=== PATIENT | female | born 1955 | race Caucasian/White ===

== ENCOUNTER 2019-09-08 05:50 | Day surgery (SDC) | payer OTHER, SELFPAY ==
[2019-09-07 07:30] VITALS: BMI 29.9
[2019-09-08 06:16] VITALS: BP 119/77; PULSE 57; RESP 20; TEMP 36.4; O2SAT 98
[2019-09-08] MEDS: sodium chloride 0.9% 1,000 ML 30 ML (06:21)
--- NOTE | 2019-09-08 06:46 | PM.HPUD ---
H&P update H&P Update: DATE OF SURGERY/PROCEDURE: 09/08/19 DATE H&P PERFORMED: 09/08/19 PLANNED PROCEDURE: Operation Date: 09/08/19 07:00 Proposed Procedures p EGD/COLON(Not Applicable) - Kamlesh Mcdonnell MD s Colonoscopy(Not Applicable) - Kamlesh Mcdonnell MD Full H&P Perinent History: Social History: Social History Smoking and tobacco status: never smoked Alcohol intake: current Alcohol intake frequency: other
--- NOTE | 2019-09-08 06:51 | ANES.PREANES ---
Pre-Anesthetic Assessment Pre-Anesthetic Assessment: Height/Weight: Height 1.65 m Weight 81.647 kg Temp Pulse Resp BP Pulse Ox 97.6 F 57 L 20 H 119/77 98 09/08/19 06:16 09/08/19 06:16 09/08/19 06:16 09/08/19 06:16 09/08/19 06:16 Proposed Procedure: Operation Date: 09/08/19 07:00 Proposed Procedures p EGD/COLON(Not Applicable) - Kamlesh Mcdonnell MD s Colonoscopy(Not Applicable) - Kamlesh Mcdonnell MD Last intake: Intake Last Liquid Date 09/07/19 Last Liquid Time 22:30 Last Solid Date 09/05/19 Last Intake: 00:00 Social: Social History: No alcohol and No tobacco Exam: Pre-Anes Outpt Exam: alert, oriented x 3, clear to auscultation bilaterally and regular rate & rhythm Airway: Submandibular: WNL Cervical ROM: WNL MP: 2 Dentition: Full History/ROS: No significant history except as noted and No significant complaints Pulmonary: Pulmonary: COOMBS and None reported CV/HEM: CV/HEM: Palp : : None reported Hepatic: Hepatic: None reported GI: GI: GERD Comments: IBS Metabolic: Metabolic: Thyroid and None reported Musc/skel: Musc/skel: None reported Neuropsych: Neuropsych: None reported Anesthetic Plan: ASA status: II Anesthesia: MAC Risk of > 500 ml blood loss (7ml/kg in children): No PFSH Anesthesia PFSH: Social History Smoking and tobacco status: never smoked Alcohol intake: current Alcohol intake frequency: other Data Anesthesia Cardiac Studies: No Data to Display
[2019-09-08 07:45] VITALS: BP 117/70; PULSE 60; RESP 16; TEMP 36.2; O2SAT 100
[2019-09-08 08:01] VITALS: BP 126/83; PULSE 59; RESP 18; O2SAT 98
[2019-09-09 06:48] LABS: H. Pylori / CLO Test Negative
== END 2019-09-08 08:22 | disposition home or self-care (01) ==
PROVIDERS: Family Provider Family Medicine; PCP Family Medicine; Visit Provider Surgery
PROC: 0DJ08ZZ Inspection of Upper Intestinal Tract, Via Natural or Artificial Opening Endoscopic (ICD-10-PCS; CPT 43235; principal; 2019-09-08 07:00)
PROC: 0DJD8ZZ Inspection of Lower Intestinal Tract, Via Natural or Artificial Opening Endoscopic (ICD-10-PCS; CPT 45378; 2019-09-08 07:00)
DX: Z83.71 Family history of colonic polyps (principal); K64.8 Other hemorrhoids; K21.9 Gastro-esophageal reflux disease without esophagitis; K29.70 Gastritis, unspecified, without bleeding; Z82.49 Family history of ischemic heart disease and other diseases of the circulatory system; Z87.19 Personal history of other diseases of the digestive system
CPT/HCPCS: 12345; 43235; 45378; 87077; 96365; J2001; J7030

== ENCOUNTER 2020-09-07 07:11 | Outpatient (CLI) | payer OTHER, SELFPAY ==
--- NOTE | 2020-09-07 07:18 | MM_ITS ---
WS: [id number] BILATERAL SCREENING DIGITAL MAMMOGRAM WITH CAD HISTORY: SCREENING COMPARISON: 07/13/2019 and 05/21/2018 Bilateral CC and MLO views submitted. Computer aided detection analyzed. Breast composition: There are scattered areas of fibroglandular density. No suspicious masses, microc alcifications or architectural distortion. Benign calcifications upper outer quadrant LEFT breast. MM/[id number] IMPRESSION: BI-RADS: 2-Benign FOLLOW UP: 1 Year Follow-up
== END 2020-09-07 07:12 | disposition home or self-care (01) ==
LOC: RADSHAW 07:16
PROVIDERS: Family Provider Family Medicine; PCP Family Medicine; Visit Provider Family Medicine
DX: Z12.31 Encounter for screening mammogram for malignant neoplasm of breast (principal)
CPT/HCPCS: 77067

== ENCOUNTER 2021-12-05 08:10 | Outpatient (CLI) | payer OTHER, SELFPAY ==
--- NOTE | 2021-12-05 08:17 | MM_ITS ---
WS: [id number] BILATERAL SCREENING 3D TOMOSYNTHESIS DIGITAL MAMMOGRAM WITH CAD HISTORY: SCREENING COMPARISON: 09/07/2020, 07/13/2019 Bilateral CC and MLO views submitted. Computer aided detection analyzed. Breast composition: There are scattered areas of fibroglandular density. No suspicious masses, microc alcifications or architectural distortion. Benign calcifications anterior LEFT breast. MM/[place] [id number] IMPRESSION: BI-RADS: 2-Benign FOLLOW UP: 1 Year Follow-up
== END 2021-12-05 08:11 | disposition home or self-care (01) ==
PROVIDERS: PCP Family Medicine; Visit Provider Family Medicine
DX: Z12.31 Encounter for screening mammogram for malignant neoplasm of breast (principal)
CPT/HCPCS: 77063; 77067

== ENCOUNTER → 2022-05-06 14:03 | Outpatient (BNVA) | payer OTHER, SELFPAY | PROVIDERS: PCP Family Medicine; Visit Provider Family Medicine | DX: Z00.00 Encounter for general adult medical examination without abnormal findings (principal); E07.9 Disorder of thyroid, unspecified; K22.70 Barrett's esophagus without dysplasia | CPT/HCPCS: 80053; 80061; 84443 ==

== ENCOUNTER → 2022-05-15 09:46 | Outpatient (BNVA) | payer OTHER, SELFPAY | PROVIDERS: PCP Family Medicine; Visit Provider Family Medicine | DX: Z00.00 Encounter for general adult medical examination without abnormal findings (principal); M25.50 Pain in unspecified joint; R53.83 Other fatigue; K22.70 Barrett's esophagus without dysplasia; E07.9 Disorder of thyroid, unspecified | CPT/HCPCS: 86618; 86666; 86757 ==

== ENCOUNTER 2022-12-11 10:49 | Outpatient (CLI) | payer MEDICARE, SELFPAY ==
--- NOTE | 2022-12-11 11:01 | MM_ITS ---
WS: [id number] BILATERAL SCREENING DIGITAL TOMOSYNTHESIS MAMMOGRAM WITH CAD HISTORY: SCREENING COMPARISON: 12/05/2021, 09/07/2020 Bilateral CC and MLO views with tomosynthesis and synthetic mammography submitted. Computer aided det ection analyzed. Breast composition: There are scattered areas of fibroglandular density. No suspicious masses, microc alcifications or architectural distortion. Benign calcifications LEFT breast. MM/[id number] IMPRESSION: BI-RADS: 2-Benign FOLLOW UP: 1 Year Follow-up
== END 2022-12-11 10:50 | disposition home or self-care (01) ==
LOC: RAD 10:58
PROVIDERS: PCP Family Medicine; Visit Provider Family Medicine
DX: Z12.31 Encounter for screening mammogram for malignant neoplasm of breast (principal)
CPT/HCPCS: 77063; 77067

== ENCOUNTER → 2023-02-17 15:00 | Outpatient (BNVA) | payer MEDICARE, SELFPAY | PROVIDERS: PCP Family Medicine; Visit Provider Family Medicine | DX: E07.9 Disorder of thyroid, unspecified (principal); I10 Essential (primary) hypertension; K21.9 Gastro-esophageal reflux disease without esophagitis; K58.9 Irritable bowel syndrome, unspecified; Z13.6 Encounter for screening for cardiovascular disorders; Z76.89 Persons encountering health services in other specified circumstances; E04.1 Nontoxic single thyroid nodule | CPT/HCPCS: 80053; 80061; 84439; 84443; 85025 ==

== ENCOUNTER 2023-03-05 08:53 | Outpatient (CLI) | payer MEDICARE, SELFPAY ==
--- NOTE | 2023-03-05 09:00 | US_ITS ---
WS: [id number] Thyroid ultrasound, 03/05/2023 Clinical Data: Concern for thyroid nodule Comparison: None. Findings: The right lobe of thyroid measures 7.4 cm x 2.5 cm x 2.0 cm. There are numerous heterogeneous thyroid nodules in the right lobe. The largest measures 1.19 x 1.2 x 1.50 cm. The left lobe is absent. The isthmus measured 1.0 cm. There is a cervical lymph node, 0.57 x 1.26 x 1.77 cm. The echotexture of the right lobe of the thyroid is heterogeneous. US/US thyroid [id number] Impression: 1. Numerous nodules in right lobe of thyroid. 2. Enlarged thyroid isthmus. 3. Absent left lobe of thyroid.
== END 2023-03-05 08:54 | disposition home or self-care (01) ==
LOC: RAD 08:56
PROVIDERS: PCP Family Medicine; Visit Provider Family Medicine
DX: E07.9 Disorder of thyroid, unspecified (principal); E04.1 Nontoxic single thyroid nodule
CPT/HCPCS: 76536

== ENCOUNTER → 2023-10-21 09:27 | Outpatient (BNVA) | payer MEDICARE, SELFPAY | PROVIDERS: PCP Family Medicine; Visit Provider Family Medicine | DX: E04.2 Nontoxic multinodular goiter (principal); E07.9 Disorder of thyroid, unspecified; E03.9 Hypothyroidism, unspecified; I10 Essential (primary) hypertension | CPT/HCPCS: 80053; 84439; 84443; 84481 ==

== ENCOUNTER 2024-01-01 10:20 | Outpatient (CLI) | payer MEDICARE, SELFPAY ==
--- NOTE | 2024-01-01 10:24 | MM_ITS ---
WS: [id number] BILATERAL SCREENING DIGITAL TOMOSYNTHESIS MAMMOGRAM WITH CAD HISTORY: SCREENING COMPARISON: 12/11/2022, 09/07/2020 Bilateral CC and MLO views with tomosynthesis and synthetic mammography submitted. Computer aided det ection analyzed. Breast composition: There are scattered areas of fibroglandular density. No suspicious masses, microc alcifications or architectural distortion. MM/[place] [id number] IMPRESSION: BI-RADS: 1-Negative FOLLOW UP: 1 Year Follow-up
== END 2024-01-01 10:21 | disposition home or self-care (01) ==
LOC: RAD 10:20
PROVIDERS: Visit Provider Family Medicine
DX: Z12.31 Encounter for screening mammogram for malignant neoplasm of breast (principal)
CPT/HCPCS: 77063; 77067

== ENCOUNTER → 2024-10-03 10:10 | Outpatient (BNVA) | payer MEDICARE, SELFPAY | PROVIDERS: PCP Family Medicine; Visit Provider Family Medicine | DX: R79.89 Other specified abnormal findings of blood chemistry (principal); E07.9 Disorder of thyroid, unspecified; I10 Essential (primary) hypertension; E04.1 Nontoxic single thyroid nodule; R53.83 Other fatigue; E89.0 Postprocedural hypothyroidism; E55.9 Vitamin D deficiency, unspecified | CPT/HCPCS: 80053; 80061; 82306; 82607; 84439; 84443; 85025 ==

== ENCOUNTER 2024-11-04 08:08 | Outpatient (CLI) | payer MEDICARE, SELFPAY ==
--- NOTE | 2024-11-04 08:13 | FL_ITS ---
WS: [email or web address] Barium swallow and esophagram, 11/04/2024 Clinical Data: DYSPHAGIA Comparison: None. Fluoroscopy time: 1min [id number] # of spot films: 35 Findings: The patient swallowed the thick and thin barium, and it flowed through the hypopharynx without hesitation. No stricture, mass, polyp or erosion was seen. There is minimal posterior impingement onto the hypopharynx from cervical osteoarthritis. The barium entered the esophagus and there was normal motility throughout. No reflux, stricture, polyp, mass, erosion or ulcer was noted. There was a small sliding hiatal hernia. The barium passed normally into the stomach. FL/SD barium swallow [id number] Impression: 1. Minimal posterior impingement on the hypopharynx from cervical arthritis. 2. Small hiatal hernia.
== END 2024-11-04 08:09 | disposition home or self-care (01) ==
LOC: RAD 08:09
PROVIDERS: PCP Family Medicine; Visit Provider Specialist
DX: R13.19 Other dysphagia (principal); K44.9 Diaphragmatic hernia without obstruction or gangrene
CPT/HCPCS: 74220

== ENCOUNTER 2024-11-10 09:47 | Outpatient (CLI) | payer MEDICARE, SELFPAY ==
--- NOTE | 2024-11-10 09:57 | FL_ITS ---
WS: [email or web address] Modified barium swallow, 11/10/2024 Clinical Data: Other dysphagia Comparison: Esophagram, 11/04/2024 Fluoroscopy time: 1min [id number] # of spot films: 0 Findings: The patient had normal oral propulsion with minimal oral residue that cleared with swallowing. There was premature spilling with thin liquids. There was no aspiration or penetration. There is a slight decrease in pharyngeal peristalsis. The barium tablet was propelled normally from the oral cavity into the stomach. FL/FL barium swallow modifd [id number] Impression: 1. Minimal oral residue that cleared with swallowing. 2. Premature spillage with thin liquids. 3. No aspiration or penetration. 4. Normal propulsion of barium tablet into the stomach.
== END 2024-11-10 09:48 | disposition home or self-care (01) ==
LOC: RAD 09:49
PROVIDERS: PCP Family Medicine; Visit Provider Specialist
DX: R13.19 Other dysphagia (principal); R93.89 Abnormal findings on diagnostic imaging of other specified body structures
CPT/HCPCS: 74230; 92611

== ENCOUNTER 2024-12-08 10:49 | Outpatient (CLI) | payer MEDICARE, SELFPAY ==
--- NOTE | 2024-12-08 10:54 | CTR_ITS ---
PROCEDURE INFORMATION: Exam: CT Neck With Contrast Exam date and time: 12/08/2024 11:40 AM Age: 69 years old Clinical indication: Dysphagia / difficulty swallowing; Prior surgery; Surgery date: 6+ months; Surgery type: Thyroid; Additional info: Other dysphagia TECHNIQUE: Imaging protocol: Computed tomography of the neck with contrast. Radiation optimization: All CT scans at this facility use at least one of these dose optimization techniques: automated exposure control; mA and/or kV adjustment per patient size (includes targeted exams where dose is matched to clinical indication); or iterative reconstruction. Contrast material: OMNI 350; Contrast volume: 100 ml; Contrast route: INTRAVENOUS (IV); COMPARISON: RF FL barium swallow modifd 11/10/2024 9:04 AM RADIATION DOSE METRICS: Total DLP (mGy-cm): 185.95 FINDINGS: Enlargement of right thyroid lobe and isthmus with multiple nodule suspected. This could be further evaluated with ultrasound as follow-up to prior ultrasound in 2022. 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 No cervical lymphadenopathy identified. No suspicious mass identified in the mucosal space; direct inspection or endoscopy could provide more detailed assessment of the mucosal space, if warranted. No significant compromise of the pharyngeal or cervical airway. No abnormal mass effect involving the cervical esophagus. No cervical adenopathy identified. No suspicious abnormality of either parotid gland or of either submandibular gland. Parapharyngeal fat planes are preserved. Fat planes in the floor of mouth are preserved. Bilateral carotid bifurcation atherosclerosis is present without evidence of significant stenosis. No abnormal mass-effect detected within the skull base. Chronic multilevel cervical degenerative disc disease and facet DJD are present. CT/CT neck w con* [id number] IMPRESSION: 1. No specific etiology for dysphagia is identified. 2. Multinodular right thyroid lobe/isthmus. Prior resection of left thyroid lobe. Additional incidental and/or nonacute findings as reported above.
[2024-12-08] MEDS: iohexol 350 mg/mL 500 mL Btl (per mL) IV (11:48)
== END 2024-12-08 10:50 | disposition home or self-care (01) ==
PROVIDERS: PCP Family Medicine; Visit Provider Specialist
DX: R13.19 Other dysphagia (principal); E04.9 Nontoxic goiter, unspecified; R93.89 Abnormal findings on diagnostic imaging of other specified body structures; I65.23 Occlusion and stenosis of bilateral carotid arteries; M50.30 Other cervical disc degeneration, unspecified cervical region; M47.899 Other spondylosis, site unspecified
CPT/HCPCS: 70491

== ENCOUNTER 2025-01-23 11:03 | Outpatient (CLI) | payer MEDICARE, SELFPAY ==
--- NOTE | 2025-01-23 11:10 | MM_ITS ---
WS: [id number] BILATERAL 3D TOMOSYNTHESIS DIGITAL SCREENING MAMMOGRAPHY WITH CAD CLINICAL INFORMATION: SCREEN HISTORY: Screening mammogram. No current complaints. COMPARISON: 2023 TECHNIQUE: Bilateral CC and MLO views. FINDINGS: Scattered fibroglandular densities bilaterally. No suspicious focal mass, asymmetry, calcifications, or architectural distortion. No evidence of malignancy. A few incidental punctate calcifications. Vascular calcification. MM/MM scr tomosynthesis [id number] IMPRESSION: DENSITY: There are scattered areas of fibroglandular density. BI-RADS: 2 - Benign. FOLLOW UP: 1 Year Follow-up Recommend return to annual screening mammography.
== END 2025-01-23 11:04 | disposition home or self-care (01) ==
LOC: RAD 11:05
PROVIDERS: PCP Family Medicine; Visit Provider Family Medicine
DX: Z12.31 Encounter for screening mammogram for malignant neoplasm of breast (principal); R92.323 Mammographic fibroglandular density, bilateral breasts; R92.1 Mammographic calcification found on diagnostic imaging of breast
CPT/HCPCS: 77063; 77067